=== PATIENT | female | born 2000 | race Caucasian/White ===

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

== ENCOUNTER 2018-01-04 09:18 | Inpatient (IN) | payer SELFPAY ==
--- NOTE | 2018-01-04 10:21 | RAD ---
PORTABLE CHEST: Date: 01/04/18 HISTORY: Tachypnea. COMPARISON: 12/17/17 exam. FINDINGS: Heart size and mediastinum are within normal limits. Lungs are clear of infiltrates. No bony findings . IMPRESSION: No active intrathoracic disease. POS: [facility]
[2018-01-04 10:25] LABS: BHCG - Serum Negative (NEGATIVE); Pregs Control Background? CLEAR/WHITE (CLR/WHITE); Pregs Control Bar Appear? YES (CONTROL BAR)
[2018-01-04 10:27] LABS: Bicarbonate (HCO3v) 6.5 mmol/L (1.0-85.0); CO2 Tension (PvCO2) 24.5 mmHg (41.0-51.0); Calcium, Ionized 1.13 mmol/L (1.12-1.32); Hemoglobin - Calc 15.1 g/dL (12.0-18.0); O2 Tension (PvO2) 45.6 mmHg (35.0-45.0); Potassium 4.8 mmol/L (3.4-4.7); T. Carbon Dioxide 7.2 mmol/L (1.0-85.0); vO2 Saturation-calc 61.6 % (94-98)
[2018-01-04 10:47] LABS: Band 16 % (5-11); Eosinophils 2 % (0-10); Hemoglobin 12.4 g/dL (12.0-16.0); Lymphocytes 15 % (28-48); MDiff Complete? YES; Mean Corpuscular HGB CONC 32.3 g/dL (32.0-36.0); Mean Corpuscular Hemoglobin 32.4 pg (25.0-35.0); Metamyelocyte 1 % (0-0); Monocytes 3 % (0-4); Myelocyte 2 % (0-0); Neutrophil 59 % (31-61); PLT Morphology Comment Appears Increased; Platelet Count 407 thou/uL (130-400); Polychromasia SLIGHT = 2-3 cells (100X) (0-2/hpf); RBC Distribution Width 13.4 % (11.5-14.5); Reactive Lymphocytes 2 % (0-10); Red Blood Cell (RBC) Count 3.84 mill/uL (4.00-5.20); White Blood Cell (WBC) Count 24.8 thou/uL (4.8-10.8)
[2018-01-04 10:48] LABS: ALT (SGPT) 51 U/L (8-55); AST (SGOT) 30 U/L (5-30); Albumin 5.6 g/dL (3.5-5.0); Alkaline Phosphatase 240 U/L (40-150); BUN (Urea Nitrogen) 25 mg/dL (8.4-21.0); Bilirubin, Total 0.7 mg/dL (0.2-1.2); Calc. Creatinine Clearance 0 mL/min (70-130); Calcium 10.5 mg/dL (7.8-10.44); Carbon Dioxide Less than 8 mmol/L (22-29); Chloride 85 mmol/L (98-107); Estimated GFR-MDRD 32; Globulin 4.5 g/dL (2.4-3.5); Glucose 976 mg/dL (70-105); Lipase 14 U/L (8-78); Magnesium 3.1 mg/dL (1.7-2.2); Protein, Total 10.1 g/dL (6.0-8.3); Sodium 129 mmol/L (136-145)
[2018-01-04 10:56] LABS: Bilirubin Negative (Negative); Blood, Urine Negative (Negative); Glucose, Urine (Dipstick) >=1000 mg/dL (Negative); Leukocyte Negative (Negative); Nitrite Negative (Negative); Protein, Urine (Dipstick) Trace mg/dL (Neg-Trace); Urobilinogen 0.2 mg/dL (0.2-1.0); pH, Urine 5.5 (5.0-9.0)
[2018-01-04 11:02] LABS: Clarity CLEAR (Clear)
[2018-01-04] MEDS ORDERED: Insulin Regular 300 UNITS/3 ML VIAL ONE (11:07)
[2018-01-04] MEDS ORDERED: Insulin Regular 100 units/100 ml in NS IVPB SCH (11:15)
[2018-01-04 13:18] LABS: BUN (Urea Nitrogen) 21 mg/dL (8.4-21.0); Calc. Creatinine Clearance 0 mL/min (70-130); Calcium 8.2 mg/dL (7.8-10.44); Carbon Dioxide Less than 8 mmol/L (22-29); Chloride 112 mmol/L (98-107); Estimated GFR-MDRD 44; Glucose 564 mg/dL (70-105); Potassium 4.8 mmol/L (3.5-5.1); Sodium 142 mmol/L (136-145)
[2018-01-04] MEDS ORDERED: NS 0.9% w/ 20 MEQ KCL 1,000 ML IV SCH (14:15)
--- NOTE | 2018-01-04 14:55 | PDOC.FPRHP ---
- History of Present Illness Chief Complaint: elevated sugar, N/V History of Present Illness: Patient is a 17yo F with PMH of T1DM diagnosed at age 5 with severe noncompliance who was admitted to [facility] 2 weeks ago for DKA due to noncompliance presents today with 2 day hx of feeling bad and 1 day hx of N/ V. She also reports she has had sugars that continue to increase despite normal regimen of insulin. She was discharged home on Lantus 20units and Novolin 10units TID, but states she was having sugars that were too low so she is now taking Lantus 16units daily and an OTC insulin on mild sliding scale. She denies recent illness, no cough, congestion, fever, dysuria, diarrhea, sore throat, or congestion. She does admit to some foul smelling "fishy" white vaginal discharge. ED Course: In the ED she was given NS with 20Kcl (1L), 3L NS, 16units Novolin R. Initially glucose of 976 down to 564 in ED. Initial AG of >36 now 22. - Allergies/Adverse Reactions Allergies Allergy/AdvReac Type Severity Reaction Status Date / Time amoxicillin Allergy Verified 01/04/18 17:36 - Home Medications Medication Instructions Recorded Confirmed Type Levothyroxine Sodium 125 mcg PO DAILY 12/17/17 01/04/18 History Melatonin 2 tab PO HS PRN 12/17/17 01/04/18 History traZODone HCl [Trazodone HCl] 150 mg PO HS 12/17/17 01/04/18 History Insulin Glargine,Hum.Rec.Anlog 16 units SD QA 01/04/18 01/04/18 History [Lantus] - History PMHx: DM1 Hypothyroidism Depression Insomnia Gastroparesis Hyperlactemia on last admission PSHx: none FHx: unk Social: Drinks occasionally, used to smoke tobacco but quit 1 month ago, denies drug use. - Review of Systems General: reports: fatigue. denies: fever/chills, weight/appetite/sleep changes , night sweats Eyes: denies: vision changes ENT: denies: nasal congestion, rhinorrhea Respiratory: denies: cough, congestion, shortness of breath Cardiovascular: denies: chest pain, palpitation, edema Gastrointestinal: reports: nausea, vomiting, abdominal pain. denies: diarrhea, constipation Genitourinary: reports: discharge. denies: incontinence, dysuria Skin: denies: rashes, lesions Musculoskeletal: denies: pain, tenderness Neurological: denies: numbness, syncope Psychological: denies: anxiety, depression - Vital signs BP: 130/85 HR: 132 RR: 23 Tmax: 95.1 Pox: 100% on RA Wt: 63kg - Physical Exam Constitutional: NAD, awake, alert and oriented HEENT: normocephalic and atraumatic, PERRLA, EOMI, grossly normal hearing, normal nasal mucosa, MMM, oropharynx clear Neck: supple Heart: RRR, normal S1/S2, no murmurs/rubs/gallops Lungs: CTAB, no respiratory distress, no wheezing, no retractions -Lungs: increase work of breathing Abdomen: soft, non-tender, bowel sounds present, no masses/distention Musculoskeletal: normal structure, normal tone Neurological: no focal deficit, DTRs 2+ Skin: no rash/lesions Psychiatric: normal mood and affect FMR H&P: Results - Labs Result Diagrams: 01/05/18 03:53 01/05/18 06:31 Lab results: WBC 24.8 thou/uL (4.8-10.8) H 01/04/18 10:10 Hgb 12.4 g/dL (12.0-16.0) 01/04/18 10:10 Hct 38.4 % (36.0-47.0) 01/04/18 10:10 MCV 100.0 fl (77.0-87.0) H 01/04/18 10:10 Plt Count 407 thou/uL (130-400) H 01/04/18 10:10 Band Neuts % (Manual) 16 % (5-11) H 01/04/18 10:10 VBG pCO2 24.5 mmHg (41.0-51.0) L 01/04/18 09:59 VBG pO2 45.6 mmHg (35.0-45.0) H 01/04/18 09:59 Sodium 142 mmol/L (136-145) 01/04/18 12:48 Potassium 4.8 mmol/L (3.5-5.1) 01/04/18 12:48 Chloride 112 mmol/L (98-107) H 01/04/18 12:48 Carbon Dioxide Less than 8 mmol/L (22-29) L* 01/04/18 12:48 BUN 21 mg/dL (8.4-21.0) 01/04/18 12:48 Creatinine 1.52 mg/dL (0.6-1.1) H 01/04/18 12:48 Glucose 564 mg/dL (70-105) H* 01/04/18 12:48 Lactic Acid 3.7 mmol/L (0.5-2.2) H 01/04/18 10:10 Calcium 8.2 mg/dL (7.8-10.44) 01/04/18 12:48 Total Bilirubin 0.7 mg/dL (0.2-1.2) 01/04/18 10:10 AST 30 U/L (5-30) 01/04/18 10:10 ALT 51 U/L (8-55) 01/04/18 10:10 Alkaline Phosphatase 240 U/L (40-150) H 01/04/18 10:10 Serum Total Protein 10.1 g/dL (6.0-8.3) H 01/04/18 10:10 Albumin 5.6 g/dL (3.5-5.0) H 01/04/18 10:10 Lipase 14 U/L (8-78) 01/04/18 10:10 Urine Ketones > or equal to 80 mg/dL (Negative) H 01/04/18 10:47 Urine Blood Negative (Negative) 01/04/18 10:47 Urine Nitrite Negative (Negative) 01/04/18 10:47 Ur Leukocyte Esterase Negative (Negative) 01/04/18 10:47 FMR H&P: A/P - Problem List (1) DKA (diabetic ketoacidoses) Current Visit: No Status: Resolved Priority: High Code(s): E13.10 - OTH DIABETES MELLITUS WITH KETOACIDOSIS WITHOUT COMA Qualifiers: Diabetes mellitus type: type 1 Diabetes mellitus complication detail: without coma Qualified Code(s): E10.10 - Type 1 diabetes mellitus with ketoacidosis without coma (2) Hypothermia Current Visit: No Status: Acute Priority: Medium Code(s): T68.XXXA - HYPOTHERMIA, INITIAL ENCOUNTER (3) ОЛЬГА (acute kidney injury) Current Visit: No Status: Acute Priority: Medium Code(s): N17.9 - ACUTE KIDNEY FAILURE, UNSPECIFIED (4) Elevated alkaline phosphatase level Current Visit: No Status: Acute Priority: Medium (5) Tachycardia Current Visit: No Status: Acute Priority: Medium Code(s): R00.0 - TACHYCARDIA, UNSPECIFIED (6) Hypothyroidism Current Visit: Yes Status: Acute Code(s): E03.9 - HYPOTHYROIDISM, UNSPECIFIED (7) Depression Current Visit: Yes Status: Acute Code(s): F32.9 - MAJOR DEPRESSIVE DISORDER , SINGLE EPISODE, UNSPECIFIED (8) Insomnia Current Visit: Yes Status: Acute Code(s): G47.00 - INSOMNIA, UNSPECIFIED - Plan DKA - Historically, patient is noncompliant, reports changing her home insulin regimen after recent discharge d/t hypoglycemic episodes, but has had increasing sugars since dosage change which is likely the reason for her DKA today. Meets SIRS criteria with hypothermia, tachycardia, elevated LA, and leukocytosis but no source of infection. Blood cultures pending. Will give empiric Abx. - Place patient in IMCU on insulin drip and IVF per DKA protocol. Initial AG of >35 now down to 22 most recently - NPO - BMP q4h - UDS pending Elevated Alkaline Phosphatase - normal GGT on last visit - resolved with fluids on prior admission - repeat tomorrow and trend, no sx of Pagets or bone disease Hyperlactemia - labile LA on prior admission - initially 3.7 and increased to 6.0 with fluids - repeat 1999 and in AM Noncompliance - per chart review from prior admission - encourage medication compliance and help patient seek PCP for f/u Hypothyroidism - TSH pending - continue home synthroid T1DM - will adjust insulin schedule once out of DKA Gastroparesis - not currently on medications at this point, monitor for sx Insomnia - continue home Melatonin and Trazodone Depression - continue Trazodone Disposition/LOS: Likely >48h FMR H&P: Upper Level - Pertinent history Patient seen with Dr. Amanda 01/04/18 at 1509 CC: High blood sugar. Not feeling well. 17 yo wf with a past medical history of DM1 recently hospitalized for DKA presents due to hyperglycemia and feeling unwell. She states she had nausea and fatigue starting yesterday. She reports she has been taking her insulin but her blood sugar is still going up. She also says she decreased her insulin at home because her blood sugar was too low. A review of her last discharge summary shows Dr. Pa Jarrell talked to her previous station chief during last admission. Her former station chief reported the patient has a history of very poor medication compliance. The patient reports she has had polyuria, dyspnea, abdominal pain, and a white, foul smelling vagnal discharge. She denies fevers, chills, headache, dizziness, chest pain, vomiting and diarrhea. PMH - DMI, hypothyroidism Social History - Repors social alcohol consumption. Denies tobacco or drug use. In he ER she was seen by Dr. Nowak. She was given 10 units Novolin R and started on a drip. She also got 3L NS. - Pertinent findings Vital Signs Temp 96.2 HR 125 BP 119/62 RR 23 O2 sats 100% on Room air Weight 63.5 kg Physical Exam: General: NAD. AAOx4 Eyes: EOMI, PERRL, nonicteric ENT: Mucous membranes dry. Oropharynx clear. CV: Tachycardic. No murmurs, rubs, gallops. Pulses full and equal in all 4 extremities Resp: CTAB. No wheezing, rales, or rhonchi. Breathing nonlabored. Abdomen: NT, ND, no guarding/rebound Ext: No edema. Equal movements bilaterally Skin: No rash or ulcer. No palpable lesions Neuro: CN II - XII intact. No focal deficits Psych: Mood appropriate. Affect odd. - Plan Date/Time: 01/04/18 1452 IJeancarlos DO, have evaluated this patient and agree with findings/plan as outlined by product management internship resident. Pertinent changes/additions are listed here. 17 year old white female presents with: 1) Diabetic ketoacidosis - Admit to IMCU. Anion gap at least 22 at last check. B -hydroxybutyrate not collected in initial workup but will check now. Patient to be placed on insulin drip and given IV fluids. DKA protocol. No obvious source of infection or symptoms of infection. VP3 will be collected as patient has symptoms of bacterial vaginosis 2) DM1 - Plan as listed above. Restart insulin regimen when anion gap closed 3) ОЛЬГА - IV fluids per DKA protocol 4) Medication noncompliance - Likely a significant contributing factor to morbidity for this patient. Needs counseling on importance and likely needs help with medication costs 5) Hypothyroidism - Home levothyroxine 6) Code status - Full Attending Addendum - Attending Addendum Date/Time: 01/05/18 0809 I personally evaluated the patient and discussed the management with Dr. fortune at the time of admission yesterday. I agree with the History, Examination, Assessment and Plan documented above with any addition or exceptions noted below.
[2018-01-04] MEDS ORDERED: CCU Electrolyte Replacement 1 EACH IVPB ONE (15:28)
[2018-01-04] MEDS ORDERED: NS 0.9% w/ 20 MEQ KCL 1,000 ML IV PRN ×2 (15:28)
[2018-01-04] MEDS ORDERED: Sodium Chloride 0.9% 1,000 ML IV PRN ×4 (15:28)
[2018-01-04] MEDS ORDERED: Dextrose 5 %-0.45 % NaCl 1,000 ML IV PRN (15:28)
[2018-01-04] MEDS ORDERED: Potassium Phosphate 12 MMOL in Sodium Chloride 0.9% 250 ML 250 ML IV PRN (15:44)
[2018-01-04] MEDS ORDERED: Magnesium Oxide 400 MG TAB PO PRN ×2 (15:44)
[2018-01-04] MEDS ORDERED: Magnesium 2 GM/NS 0.9% 100 ML 2 GM in Premix Bag 1 BAG IVPB PRN (15:44)
[2018-01-04] MEDS ORDERED: Potassium Chloride 40 MEQ in Premix Bag 1 BAG IVPB PRN (15:44)
[2018-01-04] MEDS ORDERED: Potassium Phosphate 9 MMOL in Sodium Chloride 0.9% 100 ML IVPB PRN (15:44)
[2018-01-04] MEDS ORDERED: Potassium Phosphate 15 MMOL in Sodium Chloride 0.9% 250 ML 250 ML IV PRN (15:44)
[2018-01-04] MEDS ORDERED: CCU ELECTROLYTE REPLACEMENT PROTOCOL FS PRN (15:44)
[2018-01-04] MEDS ORDERED: Potassium Chloride 20 MEQ TAB PO PRN (15:44)
[2018-01-04] MEDS ORDERED: Potassium Chloride 40 MEQ in Sodium Chloride 0.9% 250 ML 250 ML IVPB PRN (15:44)
[2018-01-04 16:41] LABS: BUN (Urea Nitrogen) 16 mg/dL (8.4-21.0); Calc. Creatinine Clearance 0 mL/min (70-130); Calcium 8.1 mg/dL (7.8-10.44); Chloride 109 mmol/L (98-107); Estimated GFR-MDRD 56; Glucose 236 mg/dL (70-105); Potassium 4.8 mmol/L (3.5-5.1); Sodium 137 mmol/L (136-145)
[2018-01-04 16:45] LABS: Carbon Dioxide Less than 8 mmol/L (22-29)
--- NOTE | 2018-01-04 16:52 | PDOC.EVN ---
Event Note - Event Note Event Note: Date/Time: 01/04/18 1650 I personally evaluated the patient and discussed the management with Dr. Amanda. I agree with the History, Examination, Assessment and Plan documented above with any addition or exceptions noted below. She certainly meets SIRS criteria, and bacteremia remains a suspected infection in light of her DKA, hypoglyemia. Advised blood cultures, empiric antibiotics. DKA protocol.
[2018-01-04 16:55] VITALS: BMI 27.3
[2018-01-04] MEDS ORDERED: Piperacillin/Tazobactam 3.375 GM in Sodium Chloride 0.9% 100 ML IVPB SCH (18:00)
[2018-01-04] MEDS: D5 1/2 NS w/20 mEq KCL 1,000 ML IV PRN ×2 (19:37→23:34)
[2018-01-04] MEDS ORDERED: Melatonin 3 MG TAB PO PRN (20:15)
[2018-01-04 20:17] LABS: Reticulocyte Count 3.7 % (0.5-1.5)
[2018-01-04 20:34] LABS: BUN (Urea Nitrogen) 12 mg/dL (8.4-21.0); Calc. Creatinine Clearance 88 mL/min (70-130); Calcium 7.8 mg/dL (7.8-10.44); Chloride 109 mmol/L (98-107); Estimated GFR-MDRD 69; Glucose 108 mg/dL (70-105); Potassium 4.4 mmol/L (3.5-5.1); Sodium 136 mmol/L (136-145)
[2018-01-04 20:35] LABS: Carbon Dioxide Less than 8 mmol/L (22-29)
[2018-01-04 20:55] LABS: Syphilis Antibody Nonreactive (Nonreactive); Syphilis Antibody Index 0.15 S/CO (<1.00 Non-Reactive)
[2018-01-04 21:00] LABS: Band 4 % (5-11); Hemoglobin 10.8 g/dL (12.0-16.0); Lymphocytes 22 % (28-48); MDiff Complete? YES; Mean Corpuscular HGB CONC 36.6 g/dL (32.0-36.0); Mean Corpuscular Hemoglobin 33.6 pg (25.0-35.0); Mean Corpuscular Volume 91.6 fl (77.0-87.0); Mean Platelet Volume 5.9 fL (7.4-10.4); Monocytes 6 % (0-4); Myelocyte 1 % (0-0); Neutrophil 67 % (31-61); PLT Morphology Comment Appears Adequate; Platelet Count 247 thou/uL (130-400); Red Blood Cell (RBC) Count 3.23 mill/uL (4.00-5.20); White Blood Cell (WBC) Count 18.9 thou/uL (4.8-10.8)
[2018-01-04 21:13] LABS: Free T4 (Free Thyroxine) 0.42 ng/dL (0.70-1.48)
[2018-01-04] MEDS ORDERED: Sodium Bicarb 50 MEQ/50 ML Abboject 8.4% SYRINGE IVP SCH (21:45)
[2018-01-04 22:05] LABS: Amphetamine Not Detected (NotDetected); Barbiturates Screen Not Detected (NotDetected); Benzodiazepine Screen Not Detected (NotDetected); Cocaine Metabolite Screen Not Detected (NotDetected); Medtox Control Line Valid? VALID (VALID); Medtox Reader # READER 1; Methadone Not Detected (NotDetected); Methamphetamine Not Detected (NotDetected); Opiate Screen Not Detected (NotDetected); Oxycodone Screen Not Detected (NotDetected); Phencyclidine (PCP) Not Detected (NotDetected); THC/Cannabinoid Screen Not Detected (NotDetected); Tricyclic Screen Not Detected (NotDetected)
[2018-01-04] MEDS: Ondansetron HCl/PF 4 MG/2 ML Vial IVP PRN (22:16)
[2018-01-04] MEDS ORDERED: traZODone HCl 150 MG TAB PO SCH (22:45)
[2018-01-04] MEDS: Vancomycin HCl 1 GM in Premix Bag 1 BAG IVPB SCH (22:53)
[2018-01-04 23:18] LABS: BUN (Urea Nitrogen) 9 mg/dL (8.4-21.0); Calc. Creatinine Clearance 91 mL/min (70-130); Calcium 7.4 mg/dL (7.8-10.44); Chloride 109 mmol/L (98-107); Estimated GFR-MDRD 71; Glucose 289 mg/dL (70-105); Potassium 4.6 mmol/L (3.5-5.1); Sodium 133 mmol/L (136-145)
[2018-01-04 23:30] LABS: Carbon Dioxide Less than 8 mmol/L (22-29)
[2018-01-04 23:30] LABS: HBSAB Concentration 7.54 mIU/mL; HBSAg Index 0.25 S/CO (0-0.99); HIV (1/2) Antibody/Antigen Non-Reactive (NonReactive); HIV 1/2 INDEX 0.08 S/CO (<1.00); Hep B Core Total Ab Non-Reactive (NonReactive); Hep B Core Total Index 0.07 S/CO (0-0.79); Hep B Surf AB Non-Reactive (NonReactive); Hep B Surf Ag Non-Reactive S/CO (NonReactive)
[2018-01-05] MEDS: D5 1/2 NS w/20 mEq KCL 1,000 ML IV PRN ×6 (03:51→23:28)
[2018-01-05 04:27] LABS: #Basophils 0.1 thou/uL (0.0-0.2); #Eosinphils 0.1 thou/uL (0.0-0.7); #Lymphocytes 2.3 thou/uL (1.20-3.40); #Neutrophils 7.4 thou/uL (1.40-6.50); %Eosinophils 0.6 % (0.0-10.0); %Lymphocytes 21.1 % (28.0-48.0); %Neutrophils 68.3 % (31.0-61.0); Hemoglobin 9.3 g/dL (12.0-16.0); Mean Corpuscular HGB CONC 35.9 g/dL (32.0-36.0); Mean Corpuscular Hemoglobin 32.6 pg (25.0-35.0); Mean Corpuscular Volume 90.9 fl (77.0-87.0); Mean Platelet Volume 5.6 fL (7.4-10.4); Platelet Count 199 thou/uL (130-400); Red Blood Cell (RBC) Count 2.86 mill/uL (4.00-5.20); White Blood Cell (WBC) Count 10.8 thou/uL (4.8-10.8)
[2018-01-05 05:01] LABS: ALT (SGPT) 31 U/L (8-55); AST (SGOT) 19 U/L (5-30); Albumin 3.9 g/dL (3.5-5.0); Alkaline Phosphatase 142 U/L (40-150); Anion Gap 16 mmol/L (10-20); BUN (Urea Nitrogen) 7 mg/dL (8.4-21.0); Bilirubin, Total 0.5 mg/dL (0.2-1.2); Calc. Creatinine Clearance 103 mL/min (70-130); Calcium 7.1 mg/dL (7.8-10.44); Carbon Dioxide 13 mmol/L (22-29); Chloride 108 mmol/L (98-107); Estimated GFR-MDRD 83; Globulin 2.5 g/dL (2.4-3.5); Glucose 132 mg/dL (70-105); Potassium 3.5 mmol/L (3.5-5.1); Protein, Total 6.4 g/dL (6.0-8.3); Sodium 133 mmol/L (136-145)
--- NOTE | 2018-01-05 05:43 | PDOC.FM ---
- Subjective Subjective: Patient is doing much better this morning. She reports some abd pain but says its due to hunger pains. She is no longer vomiting. Overnight her temperature stabilized as well as her RR. Upon further questioning for anemia she reports heavy menstrual bleeding so much so that she wears adult diapers during her cycle. She has no Fhx of blood disorders or of cancers in immediate family. - Objective MAR Reviewed: Yes Vital Signs & Weight: Vital Signs (12 hours) Temp Pulse Resp BP Pulse Ox 01/05/18 04:00 98.6 F 102 H 12 89/49 L 97 01/05/18 00:00 98.7 F 96 18 96/56 L 100 01/04/18 20:00 97.8 F 107 H 18 01/04/18 19:03 97.8 F 107 H 18 98/73 100 I&O: 01/03/18 01/04/18 01/05/18 06:59 06:59 06:59 Intake Total 900 Output Total 2150 Balance -1250 Result Diagrams: 01/05/18 03:53 01/05/18 06:31 <Vanessa Amanda - Last Filed: 01/05/18 08:27> - Objective Vital Signs & Weight: Vital Signs (12 hours) Temp Pulse Resp BP Pulse Ox 01/05/18 11:23 98.4 F 93 13 97/60 99 01/05/18 08:00 98.5 F 114 H 12 99 01/05/18 07:27 98.5 F 114 H 12 90/47 L 99 01/05/18 04:00 98.6 F 102 H 12 89/49 L 97 Weight Weight 61.2 kg I&O: 01/04/18 01/05/18 01/06/18 06:59 06:59 06:59 Intake Total 5676 750 Output Total 2150 500 Balance 3526 250 Result Diagrams: 01/05/18 03:53 01/05/18 10:55 <Lina Miller - Last Filed: 01/05/18 12:34> Phys Exam - Physical Examination Constitutional: NAD HEENT: moist MMs no supraclavicular LAD or inguinal LAD Neck: supple Respiratory: no wheezing, no rales, clear to auscultation bilateral Cardiovascular: RRR, no significant murmur Gastrointestinal: soft, no distention, positive bowel sounds mild tenderness to lower abdomen Musculoskeletal: no edema, pulses present Neurological: moves all 4 limbs Lymphatic: no nodes Psychiatric: A&O x 3 Skin: cap refill <2 seconds <Vanessa Amanda - Last Filed: 01/05/18 08:27> Dx/Plan (1) DKA (diabetic ketoacidoses) Code(s): E13.10 - OTH DIABETES MELLITUS WITH KETOACIDOSIS WITHOUT COMA Status : Resolved QualifierTitle: Diabetes mellitus type: type 1 Diabetes mellitus complication detail: without coma Qualified Code(s): E10.10 - Type 1 diabetes mellitus with ketoacidosis without coma (2) Hypothermia Code(s): T68.XXXA - HYPOTHERMIA, INITIAL ENCOUNTER Status: Acute (3) ОЛЬГА (acute kidney injury) Code(s): N17.9 - ACUTE KIDNEY FAILURE, UNSPECIFIED Status: Acute (4) Elevated alkaline phosphatase level Status: Acute (5) Tachycardia Code(s): R00.0 - TACHYCARDIA, UNSPECIFIED Status: Acute (6) Hypothyroidism Code(s): E03.9 - HYPOTHYROIDISM, UNSPECIFIED Status: Acute (7) Depression Code(s): F32.9 - MAJOR DEPRESSIVE DISORDER, SINGLE EPISODE, UNSPECIFIED Status : Acute (8) Insomnia Code(s): G47.00 - INSOMNIA, UNSPECIFIED Status: Acute (9) Hypocalcemia Code(s): E83.51 - HYPOCALCEMIA Status: Acute (10) Normocytic anemia Code(s): D64.9 - ANEMIA, UNSPECIFIED Status: Acute (11) DM (diabetes mellitus) Code(s): E11.9 - TYPE 2 DIABETES MELLITUS WITHOUT COMPLICATIONS Status: Chronic QualifierTitle: Diabetes mellitus type: type 1 Diabetes mellitus complication status: with ketoacidosis Diabetes mellitus complication detail: without coma Qualified Code(s): E10.10 - Type 1 diabetes mellitus with ketoacidosis without coma - Plan Plan: DKA - Historically, patient is noncompliant, reports changing her home insulin regimen after recent discharge d/t hypoglycemic episodes, but has had increasing sugars since dosage change which is likely the reason for her DKA today. - Initially met SIRS criteria with hypothermia, tachycardia, elevated LA, and leukocytosis but no source of infection. Blood cultures pending. Leukocytosis has resolved as well as hypothermia. LA still elevated but chronic problem. Will hold Abx with procal wnl and improvement in labs without Abx. - Initial AG of >35 now closed, but bicarb 15, will continue drip until bicarb is at least 18 - BMP q4h - UDS wnl Elevated Alkaline Phosphatase - normal GGT on last visit - resolved with fluids on prior admission and again on this admission - low Ca at 6.8 - PTH and 25 hydroxy vit D pending - peripheral smear pending to evaluate for malignant source Hypocalcemia - see above Normocytic Anemia - on prior admission had discharged Hg of 9.7, they performed Fe studies which were wnl, RBC folate and B12 wnl - likely initial blood draw was very concentrated in light of DKA, now with hydration, Hg 9.3 today - Retic count elevated to 3.7 - Haptoglobin pending Elevated LDH - likely secondary to DKA - evaluate for malignant source with peripheral smear Hyperlactatemia - labile LA on prior admission, discharged home with LA of 5 - initially 3.7 and increased to 6.0 with fluids now back down to 3.0 - will give daily thiamine Vaginal Discharge - has been self treating with monistat although hx sounds more consistent with BV - not likely source of infection - VP3 and GC/C pending Noncompliance - per chart review from prior admission - encourage medication compliance and help patient seek PCP for f/u Hypothyroidism - TSH 75 down from 260's at last admission - T3/T4 improved from last time as well although still very low (<1/0.5) - continue home synthroid as she has only been on this dose for 2 weeks and has made great improvement T1DM - will adjust insulin schedule once out of DKA - plan to start with insulin regimen she was discharged home on - consult for financial assistance with insulin Gastroparesis - not currently on medications at this point, monitor for sx Insomnia - continue home Melatonin and Trazodone Depression - continue Trazodone <Vanessa Amanda - Last Filed: 01/05/18 08:27> Attending Addendum - Attending Addendum Date/Time: 01/05/18 1226 I personally evaluated the patient and discussed the management with Dr. Amanda. I agree with the History, Examination, Assessment and Plan documented above with any addition or exceptions noted below. The patient's bicarb was 15 this morning. Will recheck. She will continue on insulin drip until labs improve. Will get diabetic teaching. WBC improved. Will repeat abg as bicarb is now down to 8. Her lactic acid has increased though she had elevations despite fluids on her last dka admission. Cultures are pending. Ordered peripheral smear due to normocytic anemia. <Lina Miller - Last Filed: 01/05/18 12:34>
[2018-01-05] MEDS: Levothyroxine Sodium 125 MCG TAB PO SCH (06:25)
[2018-01-05] MEDS: Vancomycin HCl 1 GM in Premix Bag 1 BAG IVPB SCH ×2 (06:26→17:42)
[2018-01-05 07:05] LABS: Anion Gap 13 mmol/L (10-20); BUN (Urea Nitrogen) 6 mg/dL (8.4-21.0); Calc. Creatinine Clearance 105 mL/min (70-130); Calcium 6.8 mg/dL (7.8-10.44); Carbon Dioxide 15 mmol/L (22-29); Chloride 108 mmol/L (98-107); Estimated GFR-MDRD 89; Glucose 134 mg/dL (70-105); Potassium 3.7 mmol/L (3.5-5.1); Sodium 132 mmol/L (136-145)
[2018-01-05 11:35] LABS: Anion Gap 20 mmol/L (10-20); BUN (Urea Nitrogen) 5 mg/dL (8.4-21.0); Calc. Creatinine Clearance 97 mL/min (70-130); Chloride 108 mmol/L (98-107); Estimated GFR-MDRD 81; Glucose 174 mg/dL (70-105); Sodium 132 mmol/L (136-145)
[2018-01-05 11:43] LABS: Carbon Dioxide 8 mmol/L (22-29)
[2018-01-05] MEDS: Acetaminophen 325 MG TAB PO PRN ×2 (11:53→16:04)
[2018-01-05] MEDS: Calcium Carbonate + Vit D 1 TAB PO SCH (16:04)
[2018-01-05 17:07] LABS: Anion Gap 19 mmol/L (10-20); BUN (Urea Nitrogen) Less than 4 mg/dL (8.4-21.0); Calc. Creatinine Clearance 94 mL/min (70-130); Calcium 7.4 mg/dL (7.8-10.44); Carbon Dioxide 12 mmol/L (22-29); Chloride 103 mmol/L (98-107); Estimated GFR-MDRD 78; Glucose 245 mg/dL (70-105); Potassium 4.1 mmol/L (3.5-5.1); Sodium 130 mmol/L (136-145)
[2018-01-05] MEDS: Piperacillin/Tazobactam 3.375 GM in Sodium Chloride 0.9% 100 ML IVPB SCH ×2 (17:42→23:59)
[2018-01-05 19:12] LABS: pH, Arterial 7.34 (7.35-7.45)
[2018-01-05 19:13] LABS: Actual Bicarbonate (HCO3a) 10.8 mEq/L (22-28); Base Excess (BEa) -13.3 mEq/L (-2.0 to +3.0); CO2 Tension 20.3 mmHg (35.0-45.0); Hematocrit-ABG 38.2 % (34.0-44.0); O2 Tension (PaO2) 119.7 mmHg (80.0-100.0)
[2018-01-05 19:14] LABS: Calcium, Ionized 1.1 mmol/L (1.12-1.30); Puncture Site RRA
[2018-01-05 19:19] LABS: ALV-art Gradient 3.605 (0-20)
[2018-01-05] MEDS: traZODone HCl 150 MG TAB PO SCH (20:17)
[2018-01-05 20:43] LABS: Anion Gap 22 mmol/L (10-20); BUN (Urea Nitrogen) Less than 4 mg/dL (8.4-21.0); Calc. Creatinine Clearance 98 mL/min (70-130); Calcium 7.9 mg/dL (7.8-10.44); Chloride 106 mmol/L (98-107); Estimated GFR-MDRD 82; Glucose 150 mg/dL (70-105); Potassium 4.2 mmol/L (3.5-5.1); Sodium 132 mmol/L (136-145)
[2018-01-05 20:44] LABS: Carbon Dioxide 8 mmol/L (22-29)
[2018-01-05] MEDS ORDERED: traMADol HCl 50 MG TAB PO SCH (20:45)
[2018-01-05] MEDS ORDERED: metroNIDAZOLE 500 MG TAB PO SCH (22:15)
[2018-01-05] MEDS: Ondansetron HCl/PF 4 MG/2 ML Vial IVP PRN (23:27)
[2018-01-06 01:06] LABS: Anion Gap 17 mmol/L (10-20); BUN (Urea Nitrogen) Less than 4 mg/dL (8.4-21.0); Calc. Creatinine Clearance 109 mL/min (70-130); Calcium 7.9 mg/dL (7.8-10.44); Carbon Dioxide 13 mmol/L (22-29); Chloride 105 mmol/L (98-107); Estimated GFR-MDRD Greater than 90; Glucose 156 mg/dL (70-105); Potassium 3.8 mmol/L (3.5-5.1); Sodium 131 mmol/L (136-145)
[2018-01-06] MEDS: Acetaminophen 325 MG TAB PO PRN ×2 (02:23→13:19)
[2018-01-06] MEDS: Levothyroxine Sodium 125 MCG TAB PO SCH (04:24)
[2018-01-06] MEDS: D5 1/2 NS w/20 mEq KCL 1,000 ML IV PRN (04:25)
[2018-01-06 04:57] LABS: Anion Gap 18 mmol/L (10-20); BUN (Urea Nitrogen) Less than 4 mg/dL (8.4-21.0); Calc. Creatinine Clearance 117 mL/min (70-130); Calcium 8.1 mg/dL (7.8-10.44); Carbon Dioxide 13 mmol/L (22-29); Chloride 105 mmol/L (98-107); Estimated GFR-MDRD Greater than 90; Glucose 136 mg/dL (70-105); Potassium 3.9 mmol/L (3.5-5.1); Sodium 132 mmol/L (136-145)
--- NOTE | 2018-01-06 04:57 | PDOC.FM ---
- Subjective Subjective: Patient reports poor sleep overnight due to bilateral leg pain that is anterior and sharp. She is unable to describe any tingling sensation or cramping. She reports it started yesterday and Ultram and tylenol have not worked for the pain. Otherwise she is hungry but has no complaints and no acute events overnight. Has been walking to the bathroom with ease. - Objective MAR Reviewed: Yes Vital Signs & Weight: Vital Signs (12 hours) Temp Pulse Resp BP Pulse Ox 01/06/18 03:46 98.4 F 87 16 126/89 100 01/05/18 23:45 98.3 F 94 15 108/69 99 01/05/18 20:00 98.7 F 90 16 100 01/05/18 19:24 98.7 F 90 16 113/79 100 Weight Weight 62 kg I&O: 01/04/18 01/05/18 01/06/18 06:59 06:59 06:59 Intake Total 5676 6186.0 Output Total 2150 5260 Balance 3526 926.0 Result Diagrams: 01/06/18 04:03 01/06/18 04:03 <Vanessa Amanda - Last Filed: 01/06/18 07:58> - Objective Vital Signs & Weight: Vital Signs (12 hours) Temp Pulse Resp BP Pulse Ox 01/06/18 08:00 98.4 F 95 18 99 01/06/18 06:59 98.4 F 95 18 120/84 99 01/06/18 03:46 98.4 F 87 16 126/89 100 01/05/18 23:45 98.3 F 94 15 108/69 99 Weight Weight 62 kg I&O: 01/05/18 01/06/18 01/07/18 06:59 06:59 06:59 Intake Total 5676 6747.0 751.0 Output Total 2150 5960 1000 Balance 3526 787.0 -249.0 Result Diagrams: 01/06/18 04:03 01/06/18 04:03 <Lina Miller - Last Filed: 01/06/18 09:46> Phys Exam - Physical Examination Constitutional: NAD HEENT: moist MMs possible R tonsilar nodule Respiratory: no wheezing, no rales, clear to auscultation bilateral Cardiovascular: RRR, no significant murmur Gastrointestinal: soft, non-tender, no distention, positive bowel sounds Musculoskeletal: no edema, pulses present No TTP along bilateral legs, neg homans, no bruising or skin lesions Neurological: normal sensation, moves all 4 limbs Psychiatric: normal affect, A&O x 3 Skin: cap refill <2 seconds <Vanessa Amanda - Last Filed: 01/06/18 07:58> Dx/Plan (1) DKA (diabetic ketoacidoses) Code(s): E13.10 - OTH DIABETES MELLITUS WITH KETOACIDOSIS WITHOUT COMA Status : Resolved QualifierTitle: Diabetes mellitus type: type 1 Diabetes mellitus complication detail: without coma Qualified Code(s): E10.10 - Type 1 diabetes mellitus with ketoacidosis without coma (2) Hypothermia Code(s): T68.XXXA - HYPOTHERMIA, INITIAL ENCOUNTER Status: Acute (3) ОЛЬГА (acute kidney injury) Code(s): N17.9 - ACUTE KIDNEY FAILURE, UNSPECIFIED Status: Acute (4) Elevated alkaline phosphatase level Status: Acute (5) Tachycardia Code(s): R00.0 - TACHYCARDIA, UNSPECIFIED Status: Acute (6) Hypothyroidism Code(s): E03.9 - HYPOTHYROIDISM, UNSPECIFIED Status: Acute (7) Depression Code(s): F32.9 - MAJOR DEPRESSIVE DISORDER, SINGLE EPISODE, UNSPECIFIED Status : Acute (8) Insomnia Code(s): G47.00 - INSOMNIA, UNSPECIFIED Status: Acute (9) Hypocalcemia Code(s): E83.51 - HYPOCALCEMIA Status: Acute (10) Normocytic anemia Code(s): D64.9 - ANEMIA, UNSPECIFIED Status: Acute (11) DM (diabetes mellitus) Code(s): E11.9 - TYPE 2 DIABETES MELLITUS WITHOUT COMPLICATIONS Status: Chronic QualifierTitle: Diabetes mellitus type: type 1 Diabetes mellitus complication status: with ketoacidosis Diabetes mellitus complication detail: without coma Qualified Code(s): E10.10 - Type 1 diabetes mellitus with ketoacidosis without coma - Plan Plan: DKA - Historically, patient is noncompliant, reports changing her home insulin regimen after recent discharge d/t hypoglycemic episodes, but has had increasing sugars since dosage change. Unsure really what exactly put her into DKA at this point. - Initially met SIRS criteria with hypothermia, tachycardia, elevated LA, and leukocytosis but no source of infection. Blood cultures pending. Leukocytosis has resolved as well as hypothermia. LA still elevated but chronic problem. Will hold Abx with procal wnl and improvement in labs without Abx. - Initial AG of >35 now closed, but bicarb 13, will continue drip until bicarb is at least 18 - with the difficulty of closing gap and getting bicarb down, consider scanning abdomen for potential sources of infection - continue BMP q4h - UDS wnl Hypocalcemia - PTH elevated - vit D low - initially elevated Alk Phos, with normal GGT, this could explain - will give vit D and calcium supplement Vit D Deficiency - vit D supplement Normocytic Anemia - on prior admission had discharged Hg of 9.7, they performed Fe studies which were wnl, RBC folate and B12 wnl - likely initial blood draw was very concentrated in light of DKA, now with hydration, Hg 9 today - Retic count elevated to 3.7 - Haptoglobin pending - peripheral smear wnl Elevated LDH - likely secondary to DKA - peripheral smear wnl Hyperlactatemia - labile LA on prior admission, discharged home with LA of 5 - initially 3.7, 6.0, 3.0, 7.8 - will give daily thiamine - will evaluate for other causes of metabolic acidosis with urine gap and osmol gap Bacterial Vaginosis - will give Metronidazole for 7 days - GC/C still pending Leg Pain - could be due to hypocalcemia which is correcting but also could be a nerve type pain - will try Gabapentin and continue the tylenol Noncompliance - per chart review from prior admission - encourage medication compliance and help patient seek PCP for f/u Hypothyroidism - TSH 75 down from 260's at last admission - T3/T4 improved from last time as well although still very low (<1/0.5) - continue home synthroid as she has only been on this dose for 2 weeks and has made great improvement - nodule palpated on exam, consider neck u/s T1DM - will adjust insulin schedule once out of DKA - plan to start with insulin regimen she was discharged home on - CM consult for financial assistance with insulin Gastroparesis - not currently on medications at this point, monitor for sx Insomnia - continue home Melatonin and Trazodone Depression - continue Trazodone <Vanessa Amanda - Last Filed: 01/06/18 07:58> Attending Addendum - Attending Addendum Date/Time: 01/06/1844 I personally evaluated the patient and discussed the management with Dr. Amanda. I agree with the History, Examination, Assessment and Plan documented above with any addition or exceptions noted below. The patient continues to have lactic acidosis but this was present in a previous hospitalization. Will check beta hydroxybuturate to evaluated if her metabolic acidosis is coming from dka or other causes. If it is negative, will transition to sc insulin and let pt eat. Thyroid nodule noted on exam, will get thyroid ultrasound. Will also consider MRI of brain as she has multiple endrocine abnormalities that may stem from a pituitary problem. <Lina Miller - Last Filed: 01/06/18 09:46>
[2018-01-06 05:14] LABS: Lactic Acid 7.8 mmol/L (0.5-2.2)
[2018-01-06 05:43] LABS: #Basophils 0.1 thou/uL (0.0-0.2); #Eosinphils 0.1 thou/uL (0.0-0.7); #Lymphocytes 3.6 thou/uL (1.20-3.40); #Monocytes 0.6 thou/uL (0.11-0.59); #Neutrophils 3.8 thou/uL (1.40-6.50); %Basophils 1.5 % (0.0-1.0); %Eosinophils 1.5 % (0.0-10.0); %Lymphocytes 43.8 % (28.0-48.0); %Monocytes 7.1 % (0.0-4.0); %Neutrophils 46.2 % (31.0-61.0); Hemoglobin 9.6 g/dL (12.0-16.0); Mean Corpuscular HGB CONC 34.3 g/dL (32.0-36.0); Mean Corpuscular Hemoglobin 31.8 pg (25.0-35.0); Mean Corpuscular Volume 92.9 fl (77.0-87.0); Mean Platelet Volume 5.8 fL (7.4-10.4); Platelet Count 183 thou/uL (130-400); Red Blood Cell (RBC) Count 3.01 mill/uL (4.00-5.20); White Blood Cell (WBC) Count 8.2 thou/uL (4.8-10.8)
[2018-01-06] MEDS: Piperacillin/Tazobactam 3.375 GM in Sodium Chloride 0.9% 100 ML IVPB SCH ×2 (05:50→07:51)
[2018-01-06] MEDS: Vancomycin HCl 1 GM in Premix Bag 1 BAG IVPB SCH (05:50)
--- NOTE | 2018-01-06 05:54 | PDOC.EVN ---
Event Note - Event Note Event Note: Paged for lactic acid of 7.8, increased from 3.0 yesterday Vitals signs stable, afebrile T 98.4, P87, RR 16, 100% on RA, BP 126/89 Patient's anion gap is recently closed to 18 Patient in NAD, states she is having some pain in her shins but no abdmonial pain, she does feel hungry Soft, non-tender to light palpations, tender to deep palpation in RLQ, states it is because she has a full bladder, no sharp pain, NBS Check acetaminophen and salicylate levels as these can cause metabolic acidosis Check osmol gap, urine anion gap, urine pH Consider RTA, suspect negative anion gap Consider CT Abd/Pelvis to r/o infectious source
[2018-01-06 06:07] LABS: Salicylate Less than 8.0 mg/dL (15.0-30.0)
[2018-01-06 06:50] LABS: Potassium, Urine 18.3 mmol/L
[2018-01-06] MEDS: Calcium Carbonate + Vit D 1 TAB PO SCH ×2 (07:50→17:29)
[2018-01-06] MEDS: Ondansetron ODT 4 MG TAB PO PRN ×3 (07:50→21:17)
[2018-01-06] MEDS: metroNIDAZOLE 500 MG TAB PO SCH ×2 (07:50→21:17)
[2018-01-06] MEDS: Gabapentin 100 MG CAP PO SCH ×2 (08:09→21:17)
[2018-01-06 10:52] LABS: Anion Gap 18 mmol/L (10-20); BUN (Urea Nitrogen) Less than 4 mg/dL (8.4-21.0); Calc. Creatinine Clearance 111 mL/min (70-130); Calcium 7.9 mg/dL (7.8-10.44); Carbon Dioxide 13 mmol/L (22-29); Chloride 104 mmol/L (98-107); Estimated GFR-MDRD Greater than 90; Glucose 348 mg/dL (70-105); Potassium 3.9 mmol/L (3.5-5.1); Sodium 131 mmol/L (136-145)
--- NOTE | 2018-01-06 12:24 | ULT ---
THYROID ULTRASOUND; HISTORY: Hypothyroidism and thyroid nodule. FINDINGS: Thyroid sonography was performed using a multihertz linear ray transducer. Real-time color flow imag es obtained. The right thyroid lobe measures 3.0 x 0.8 x 1.2 cm while the left measures 2.5 x 0.9 x 1.1 cm. The t hyroid lobes are somewhat small. They are slightly heterogeneous in echogenicity. No dominant solid or cystic mass is seen. No other definite lesions seen which are of concern. IMPRESSION: Somewhat atrophied and slightly heterogeneous thyroid tissue. POS: DANNY
[2018-01-06] MEDS ORDERED: Insulin Glargine 16 UNITS in Pre-Filled Syringe 1 EACH SC SCH (13:15)
[2018-01-06 15:14] LABS: Anion Gap 19 mmol/L (10-20); BUN (Urea Nitrogen) Less than 4 mg/dL (8.4-21.0); Calc. Creatinine Clearance 112 mL/min (70-130); Calcium 9.2 mg/dL (7.8-10.44); Carbon Dioxide 15 mmol/L (22-29); Chloride 102 mmol/L (98-107); Estimated GFR-MDRD Greater than 90; Glucose 116 mg/dL (70-105); Potassium 4.6 mmol/L (3.5-5.1); Sodium 131 mmol/L (136-145)
[2018-01-06] MEDS: Insulin Regular 300 UNITS/3 ML VIAL SC SCH ×2 (17:30→21:17)
[2018-01-06 19:13] LABS: Anion Gap 19 mmol/L (10-20); BUN (Urea Nitrogen) 6 mg/dL (8.4-21.0); Calc. Creatinine Clearance 91 mL/min (70-130); Calcium 8.6 mg/dL (7.8-10.44); Carbon Dioxide 14 mmol/L (22-29); Chloride 99 mmol/L (98-107); Estimated GFR-MDRD 74; Glucose 386 mg/dL (70-105); Potassium 4.4 mmol/L (3.5-5.1); Sodium 128 mmol/L (136-145)
[2018-01-06] MEDS: traZODone HCl 150 MG TAB PO SCH (21:16)
[2018-01-06 23:33] LABS: Anion Gap 19 mmol/L (10-20); BUN (Urea Nitrogen) 6 mg/dL (8.4-21.0); Calc. Creatinine Clearance 107 mL/min (70-130); Calcium 9.8 mg/dL (7.8-10.44); Carbon Dioxide 16 mmol/L (22-29); Chloride 100 mmol/L (98-107); Estimated GFR-MDRD 89; Glucose 207 mg/dL (70-105); Potassium 3.8 mmol/L (3.5-5.1); Sodium 131 mmol/L (136-145)
[2018-01-07 04:36] LABS: #Eosinphils 0.2 thou/uL (0.0-0.7); #Lymphocytes 2.9 thou/uL (1.20-3.40); #Monocytes 0.6 thou/uL (0.11-0.59); #Neutrophils 3.3 thou/uL (1.40-6.50); %Basophils 0.5 % (0.0-1.0); %Eosinophils 3.5 % (0.0-10.0); %Lymphocytes 41.2 % (28.0-48.0); %Neutrophils 46.8 % (31.0-61.0); Hemoglobin 9.7 g/dL (12.0-16.0); Mean Corpuscular HGB CONC 34.2 g/dL (32.0-36.0); Mean Corpuscular Hemoglobin 31.1 pg (25.0-35.0); Mean Platelet Volume 6.6 fL (7.4-10.4); Platelet Count 179 thou/uL (130-400); RBC Distribution Width 12.7 % (11.5-14.5); Red Blood Cell (RBC) Count 3.13 mill/uL (4.00-5.20); White Blood Cell (WBC) Count 7.1 thou/uL (4.8-10.8)
[2018-01-07 04:45] LABS: ALT (SGPT) 26 U/L (8-55); AST (SGOT) 27 U/L (5-30); Albumin 3.9 g/dL (3.5-5.0); Alkaline Phosphatase 156 U/L (40-150); Anion Gap 18 mmol/L (10-20); BUN (Urea Nitrogen) 5 mg/dL (8.4-21.0); Bilirubin, Total 0.5 mg/dL (0.2-1.2); Calc. Creatinine Clearance 120 mL/min (70-130); Calcium 9.7 mg/dL (7.8-10.44); Carbon Dioxide 17 mmol/L (22-29); Chloride 103 mmol/L (98-107); Estimated GFR-MDRD Greater than 90; Globulin 2.8 g/dL (2.4-3.5); Glucose 105 mg/dL (70-105); Potassium 3.9 mmol/L (3.5-5.1); Protein, Total 6.7 g/dL (6.0-8.3); Sodium 134 mmol/L (136-145)
[2018-01-07] MEDS: Levothyroxine Sodium 125 MCG TAB PO SCH (05:49)
--- NOTE | 2018-01-07 06:12 | PDOC.FM ---
- Subjective Subjective: Patient doing well this morning. Insulin drip was discontinued yesterday and she is tolerating food. Her leg pain has resolved. She did have some hypoglycemia overnight but states that is usual for her. She was given juice, crackers and milk and feels well now. - Objective MAR Reviewed: Yes Vital Signs & Weight: Vital Signs (12 hours) Temp Pulse Resp BP Pulse Ox 01/07/18 03:15 98.5 F 103 H 18 101/60 99 01/07/18 00:00 98.4 F 111 H 16 99/62 98 01/06/18 20:00 98.7 F 99 18 99 01/06/18 19:20 98.7 F 99 18 121/88 99 Weight Weight 61.5 kg I&O: 01/05/18 01/06/18 01/07/18 06:59 06:59 06:59 Intake Total 5676 6747.0 4058.7 Output Total 2150 5960 2700 Balance 3526 787.0 1358.7 Result Diagrams: 01/07/18 04:10 01/07/18 04:10 <Vanessa Amanda - Last Filed: 01/07/18 09:01> - Objective Vital Signs & Weight: Vital Signs (12 hours) Temp Pulse Resp BP Pulse Ox 01/07/18 12:00 98.2 F 99 16 118/80 97 01/07/18 08:00 97.9 F 99 20 114/79 98 01/07/18 07:37 97.8 F 103 H 15 98/59 L 99 Weight Weight 61.5 kg I&O: 01/06/18 01/07/18 01/08/18 06:59 06:59 06:59 Intake Total 6747.0 4058.7 Output Total 5960 2700 Balance 787.0 1358.7 Result Diagrams: 01/07/18 04:10 01/07/18 04:10 <Lina Miller - Last Filed: 01/07/18 15:49> Phys Exam - Physical Examination Constitutional: NAD Respiratory: no wheezing, no rales, clear to auscultation bilateral Cardiovascular: RRR, no significant murmur Gastrointestinal: soft, non-tender, no distention Musculoskeletal: pulses present Neurological: moves all 4 limbs Psychiatric: A&O x 3 <Vanessa Amanda - Last Filed: 01/07/18 09:01> Dx/Plan (1) DKA (diabetic ketoacidoses) Code(s): E13.10 - OTH DIABETES MELLITUS WITH KETOACIDOSIS WITHOUT COMA Status : Resolved QualifierTitle: Diabetes mellitus type: type 1 Diabetes mellitus complication detail: without coma Qualified Code(s): E10.10 - Type 1 diabetes mellitus with ketoacidosis without coma (2) Hypothermia Code(s): T68.XXXA - HYPOTHERMIA, INITIAL ENCOUNTER Status: Acute (3) ОЛЬГА (acute kidney injury) Code(s): N17.9 - ACUTE KIDNEY FAILURE, UNSPECIFIED Status: Acute (4) Elevated alkaline phosphatase level Status: Acute (5) Tachycardia Code(s): R00.0 - TACHYCARDIA, UNSPECIFIED Status: Acute (6) Hypothyroidism Code(s): E03.9 - HYPOTHYROIDISM, UNSPECIFIED Status: Acute (7) Depression Code(s): F32.9 - MAJOR DEPRESSIVE DISORDER, SINGLE EPISODE, UNSPECIFIED Status : Acute (8) Insomnia Code(s): G47.00 - INSOMNIA, UNSPECIFIED Status: Acute (9) Hypocalcemia Code(s): E83.51 - HYPOCALCEMIA Status: Acute (10) Normocytic anemia Code(s): D64.9 - ANEMIA, UNSPECIFIED Status: Acute (11) DM (diabetes mellitus) Code(s): E11.9 - TYPE 2 DIABETES MELLITUS WITHOUT COMPLICATIONS Status: Chronic QualifierTitle: Diabetes mellitus type: type 1 Diabetes mellitus complication status: with ketoacidosis Diabetes mellitus complication detail: without coma Qualified Code(s): E10.10 - Type 1 diabetes mellitus with ketoacidosis without coma - Plan Plan: DKA, resolved - Historically, patient is noncompliant, reports changing her home insulin regimen after recent discharge d/t hypoglycemic episodes, but has had increasing sugars since dosage change. Unsure really what exactly put her into DKA at this point. - Initially met SIRS criteria with hypothermia, tachycardia, elevated LA, and leukocytosis but no source of infection. Blood cultures pending. Leukocytosis has resolved as well as hypothermia. LA still elevated but chronic problem. Will hold Abx with procal wnl and improvement in labs without Abx. - Initial AG of >35 now closed and bicarb trending upward, most recently 17 - d/c'd insulin drip yesterday, continue Lantus 16units and Humulin R 10 units TID - repeat BMP tomorrow - space out accuchecks to q4h and transfer out of [facility] - UDS wnl Hypocalcemia - PTH elevated - vit D low - initially elevated Alk Phos, with normal GGT, this could explain - will give vit D and calcium supplement Vit D Deficiency - vit D supplement Normocytic Anemia - on prior admission had discharged Hg of 9.7, they performed Fe studies which were wnl, RBC folate and B12 wnl - likely initial blood draw was very concentrated in light of DKA, now with hydration, Hg 9 today - Retic count elevated to 3.7 - Haptoglobin pending - peripheral smear wnl Elevated LDH - likely secondary to DKA - peripheral smear wnl Hyperlactatemia - labile LA on prior admission, discharged home with LA of 5 - initially 3.7, 6.0, 3.0, 7.8 - will give daily thiamine - osmol gap wnl - will evaluate for other causes of metabolic acidosis with urine gap, urine Cl still pending Bacterial Vaginosis - will give Metronidazole for 7 days - GC/C still pending Leg Pain - resolved, will give gabapentin prn. Noncompliance - per chart review from prior admission - encourage medication compliance and help patient seek PCP for f/u Hypothyroidism - TSH 75 down from 260's at last admission - T3/T4 improved from last time as well although still very low (<1/0.5) - continue home synthroid as she has only been on this dose for 2 weeks and has made great improvement - thyroid u/s wnl T1DM - Lantus 16units - Humulin R 8 units TID, with SSI - CM consult for financial assistance with insulin Gastroparesis - not currently on medications at this point, monitor for sx Insomnia - continue home Melatonin and Trazodone Depression - continue Trazodone <Vanessa Amanda - Last Filed: 01/07/18 09:01> Attending Addendum - Attending Addendum Date/Time: 01/07/18 3402 I personally evaluated the patient and discussed the management with Dr. Amanda. I agree with the History, Examination, Assessment and Plan documented above with any addition or exceptions noted below. The patient has been transitioned to subcutaneous insulin. Will transfer to the medical floor. Titrate insulin as appropriate. <Lina Miller - Last Filed: 01/07/18 15:49>
[2018-01-07 07:27] LABS: Lactic Acid 3.8 mmol/L (0.5-2.2)
[2018-01-07] MEDS: Insulin Glargine 16 UNITS in Pre-Filled Syringe 1 EACH SC SCH (09:02)
[2018-01-07] MEDS: Calcium Carbonate + Vit D 1 TAB PO SCH ×2 (09:02→16:26)
[2018-01-07] MEDS: Gabapentin 100 MG CAP PO SCH (09:02)
[2018-01-07] MEDS: Insulin Regular 300 UNITS/3 ML VIAL SC SCH ×3 (09:02→16:26)
[2018-01-07] MEDS: metroNIDAZOLE 500 MG TAB PO SCH ×2 (09:02→20:30)
[2018-01-07] MEDS ORDERED: Gabapentin 100 MG CAP PO PRN (09:06)
[2018-01-07] MEDS: traZODone HCl 150 MG TAB PO SCH (20:30)
[2018-01-08 02:04] LABS: Chlamydia by PCR Not Detected (NotDetected); GC by PCR Not Detected (NotDetected)
[2018-01-08 04:40] LABS: Anion Gap 16 mmol/L (10-20); BUN (Urea Nitrogen) 13 mg/dL (8.4-21.0); Calc. Creatinine Clearance 108 mL/min (70-130); Calcium 10.4 mg/dL (7.8-10.44); Carbon Dioxide 24 mmol/L (22-29); Chloride 98 mmol/L (98-107); Estimated GFR-MDRD Greater than 90; Glucose 252 mg/dL (70-105); Potassium 4.1 mmol/L (3.5-5.1); Sodium 134 mmol/L (136-145)
[2018-01-08] MEDS: Levothyroxine Sodium 125 MCG TAB PO SCH (05:34)
[2018-01-08] MEDS ORDERED: Dextrose 50% Abboject 50 ML SYRINGE SLOW IVP PRN (07:06)
[2018-01-08] MEDS ORDERED: HumaLOG 300 UNITS/3 ML VIAL SC PRN (07:06)
[2018-01-08] MEDS ORDERED: Dextrose 5% in Water 1,000 ML IV PRN (07:06)
[2018-01-08] MEDS: Calcium Carbonate + Vit D 1 TAB PO SCH (08:25)
[2018-01-08] MEDS: metroNIDAZOLE 500 MG TAB PO SCH (08:25)
[2018-01-08] MEDS: Insulin Regular 300 UNITS/3 ML VIAL SC SCH ×2 (08:26→11:23)
[2018-01-08] MEDS: Insulin Glargine 16 UNITS in Pre-Filled Syringe 1 EACH SC SCH (08:27)
--- NOTE | 2018-01-08 09:01 | PDOC.FM ---
- Subjective Subjective: Patient is doing well this morning. She is eating breakfast and reports she slept well. She did have a snack around 11pm she states. Normally her eating schedule is irregular which is why she uses a sliding scale at home. No acute events overnight. - Objective MAR Reviewed: Yes Vital Signs & Weight: Vital Signs (12 hours) Temp Pulse Resp BP Pulse Ox 01/08/18 07:51 97.8 F 83 16 115/88 97 Weight Weight 61.547 kg I&O: 01/07/18 01/08/18 01/09/18 06:59 06:59 06:59 Intake Total 4058.7 825 Output Total 2700 Balance 1358.7 825 Result Diagrams: 01/07/18 04:10 01/08/18 03:53 Phys Exam - Physical Examination Constitutional: NAD Respiratory: no wheezing, no rales, clear to auscultation bilateral Cardiovascular: RRR, no significant murmur Gastrointestinal: soft, non-tender, no distention Musculoskeletal: no edema Neurological: moves all 4 limbs Psychiatric: A&O x 3 Dx/Plan (1) DKA (diabetic ketoacidoses) Code(s): E13.10 - OTH DIABETES MELLITUS WITH KETOACIDOSIS WITHOUT COMA Status : Resolved Qualifiers: Diabetes mellitus type: type 1 Diabetes mellitus complication detail: without coma Qualified Code(s): E10.10 - Type 1 diabetes mellitus with ketoacidosis without coma (2) Hypothermia Code(s): T68.XXXA - HYPOTHERMIA, INITIAL ENCOUNTER Status: Acute (3) ОЛЬГА (acute kidney injury) Code(s): N17.9 - ACUTE KIDNEY FAILURE, UNSPECIFIED Status: Acute (4) Elevated alkaline phosphatase level Status: Acute (5) Tachycardia Code(s): R00.0 - TACHYCARDIA, UNSPECIFIED Status: Acute (6) Hypothyroidism Code(s): E03.9 - HYPOTHYROIDISM, UNSPECIFIED Status: Acute (7) Depression Code(s): F32.9 - MAJOR DEPRESSIVE DISORDER, SINGLE EPISODE, UNSPECIFIED Status : Acute (8) Insomnia Code(s): G47.00 - INSOMNIA, UNSPECIFIED Status: Acute (9) Hypocalcemia Code(s): E83.51 - HYPOCALCEMIA Status: Acute (10) Normocytic anemia Code(s): D64.9 - ANEMIA, UNSPECIFIED Status: Acute (11) DM (diabetes mellitus) Code(s): E11.9 - TYPE 2 DIABETES MELLITUS WITHOUT COMPLICATIONS Status: Chronic Qualifiers: Diabetes mellitus type: type 1 Diabetes mellitus complication status: with ketoacidosis Diabetes mellitus complication detail: without coma Qualified Code(s): E10.10 - Type 1 diabetes mellitus with ketoacidosis without coma - Plan Plan: T1DM - Lantus 16units - Humulin R 8 units TID, add SSI - BS a bit labile, but overall stable - CM consult for financial assistance with insulin - needs PCP Hyperlactatemia - labile LA on prior admission, discharged home with LA of 5 - initially 3.7, 6.0, 3.0, 7.8 - will give daily thiamine - osmol gap wnl - will evaluate for other causes of metabolic acidosis with urine gap, urine Cl still pending Hypocalcemia - PTH elevated - vit D low - initially elevated Alk Phos, with normal GGT, this could explain - will give vit D and calcium supplement Vit D Deficiency - vit D supplement Normocytic Anemia - on prior admission had discharged Hg of 9.7, they performed Fe studies which were wnl, RBC folate and B12 wnl - likely initial blood draw was very concentrated in light of DKA, now with hydration, Hg 9 today - Retic count elevated to 3.7 - Haptoglobin pending - peripheral smear wnl Elevated LDH - likely secondary to DKA - peripheral smear wnl DKA, resolved - Historically, patient is noncompliant, reports changing her home insulin regimen after recent discharge d/t hypoglycemic episodes, but has had increasing sugars since dosage change. Unsure really what exactly put her into DKA at this point. - Initially met SIRS criteria with hypothermia, tachycardia, elevated LA, and leukocytosis but no source of infection. Blood cultures negative. Leukocytosis has resolved as well as hypothermia. LA still elevated but chronic problem. Will hold Abx with procal wnl and improvement in labs without Abx. - Initial AG of >35 now closed and bicarb normalized, most recently 24 - off insulin drip and doing well on subcutaneous insulin Bacterial Vaginosis - will give Metronidazole for 7 days - GC/C still pending Leg Pain - resolved, will give gabapentin prn. Noncompliance - per chart review from prior admission - encourage medication compliance and help patient seek PCP for f/u Hypothyroidism - TSH 75 down from 260's at last admission - T3/T4 improved from last time as well although still very low (<1/0.5) - continue home synthroid as she has only been on this dose for 2 weeks and has made great improvement - thyroid u/s wnl Gastroparesis - not currently on medications at this point, monitor for sx Insomnia - continue home Melatonin and Trazodone Depression - continue Trazodone Dispo: Salbador d/c today or tomorrow. Awaiting some labs and titrating insulin.
[2018-01-08 11:14] VITALS: BP 125/82; TEMP 97.6
--- NOTE | 2018-01-08 14:36 | ADD-PRG ---
ADDENDUM This is an addendum to the note of Dr. Vanessa Amanda. Ms. Moon is a 17-year-old white female patient with history of type 1 diabetes. She was admitted in diabetic ketoacidosis, which has since resolved with fluids and insulin infusion. She will be disch arged later today as she is also tolerating a near normal diet. We have emphasized the importance of close followup. She also has a relatively unexplained anemia and I would consider the possibility t hat she may have thalassemia variant with a mixed overlay from nutritional deficiency. This can be w orked up as an outpatient.
== END 2018-01-08 14:47 | disposition home or self-care (01) | DRG 638 ==
LOC: ERS 09:18 → IMCU/EMU 14:58 → T4-A 01-07 08:29
PROVIDERS: ADMIT Family Medicine; ATTEND Family Medicine
DX: E10.10 Type 1 diabetes mellitus with ketoacidosis without coma (principal); N17.9 Acute kidney failure, unspecified; T68.XXXA Hypothermia, initial encounter; R00.0 Tachycardia, unspecified; F32.9 Major depressive disorder, single episode, unspecified; G47.00 Insomnia, unspecified; E03.9 Hypothyroidism, unspecified; E83.51 Hypocalcemia; D64.9 Anemia, unspecified; Z91.14 Patient's other noncompliance with medication regimen
CPT/HCPCS: 36415; 36416; 71045; 76536; 80048; 80053; 80306; 80307; 81002; 81003; 82010; 82306; 82330; 82436; 82803; 82805; 83010; 83605; 83615; 83690; 83735; 83930; 83970; 84100; 84133; 84145; 84300; 84439; 84443; 84481; 84703; 85025; 85046; 85060; 86704; 86706; 86780; 87040; 87086; 87340; 87389; 87480; 87491; 87510; 87591; 87660; 93005; 96361; 96365; 96366; 96376; A4216; J1815; J2405; J2543; J7050